=== PATIENT | female | born 1970 | race Caucasian/White ===

== ENCOUNTER 2016-10-01 22:58 | Emergency (ER) | payer BC ==
[~2016-10-01] VITALS: Ht 160 cm; Wt 68.0 kg
[2016-10-01 22:58] VITALS: BP 113/65
[2016-10-01] MEDS ORDERED: CLIN300C8 PO (23:32)
--- NOTE | 2016-10-01 23:32 | PHYS DOC ---
Adult General Chief Complaint Chief Complaint: DENTAL PROBLEM HPI HPI Patient is a 46 year old F who presents with left lower jaw dental abscess. Patient had extensive to work done with the implantation of dentures and developed an abscess to her left lower jaw. Patient called her dentist this week and was started on amoxicillin that was left over from a previous infection. Patient states the pain is getting worse and she has more swelling to her left lower jaw. Patient denies any difficulty swallowing. Patient denies any chest pain or shortness of breath. She denies any fevers. Patient has no other complaints. Review of Systems Review of Systems GEN: Denies fevers, chills, sweats HEENT: Left lower jaw dental abscess CV: Denies chest pain RESP: Denies shortness of air, cough GI: Denies n/v/d NEURO: Denies confusion, dizziness MSK: Denies weakness, joint pain/swelling Physical Exam Physical Exam GEN.: No apparent distress. Alert and oriented. HEENT: Head is normocephalic, atraumatic, swelling to left lower jaw with no significant area of fluctuance, newly dentures were placed in the lower and upper jaw NECK: Supple. LUNGS: CTAB. HEART: RRR, S1, S2 present. Peripheral pulses intact ABDOMEN: Soft, nontender. Positive bowel sounds. EXTREMITIES: Without any cyanosis. NEUROLOGIC: Normal speech, normal tone PSYCHIATRIC: Normal affect, normal mood. SKIN: No ulcerations EKG EKG [] Radiology/Procedures Radiology/Procedures [] Course & Med Decision Making Course & Med Decision Making Pertinent Labs and Imaging studies reviewed. (See chart for details) MDM: After reviewing the chart, CC/HPI/PMH, physical exam, I do not believe the patient has a significant infection of the mouth warranting further workup and/ or admission at this time. I do not believe the patient has Thom angina. I switched the patient and asked from amoxicillin to clindamycin and recommended short-term follow-up with tenderness in one to 2 days. Patient is stable for discharge. Additional verbal discharge instructions were provided to the patient and that if symptoms get worse or any new symptoms arise that are worrisome to the patient she is to return to the emergency room immediately [] Dragon Disclaimer Dragon Disclaimer This chart was dictated in whole or in part using Voice Recognition software in a busy, high-work load, and often noisy Emergency Department environment. It may contain unintended and wholly unrecognized errors or omissions. Departure Departure: Impression: Primary Impression: Dental abscess Disposition: 01 HOME, SELF-CARE Condition: STABLE Patient Instructions: Dental Abscess Additional Instructions: Please follow up with her dentist next 1-2 days Scripts Clindamycin Hcl (CLINDAMYCIN HCL) 300 Mg Capsule 1 CAP PO TID, #21 CAP Prov: ASHLEIGH MALLOY DO 10/01/16 ASHLEIGH MALLOY DO Oct 01, 2016 23:32
== END 2016-10-01 23:50 | disposition home or self-care (01) ==
LOC: ER 22:58
DX: K04.7 Periapical abscess without sinus (principal)
CPT/HCPCS: 99283

== ENCOUNTER 2020-04-18 04:11 | Emergency (ER) | payer BC, OTHER ==
[~2020-04-18] VITALS: Ht 167.6 cm; Wt 67.0 kg
[~2020-04-18 04:11] MED LIST: CLIN300C9 PO
--- NOTE | 2020-04-18 04:40 | PHYS DOC ---
Past History Past Medical History: Other (PAUL LYON MD) Past Surgical History: No Surgical History, Other (PAUL LYON MD) Alcohol Use: None (PAUL LYON MD) Adult General Chief Complaint Chief Complaint: ABDOMINAL PAIN HPI HPI Patient is a 49-year-old female, with a history of 3 C-sections who presents to the emergency department with a chief complaint of right lower quadrant pain associated with a couple episodes of nonbloody nonbilious emesis. States that all this started a couple of days ago and was initially intermittent but over the last 12 hours or so has been relatively constant, 7 out of 10, dull and achy in nature with a little radiation from the right lower quadrant to her right flank and noticed that her urine was really dark and kind of smell. States he has had urinary tract infections in the past. Denies any recent travel, illnesses, fevers, chest pain, shortness of breath, diarrhea or blood in the stool. (PALU LYON MD) Review of Systems Review of Systems Review of systems otherwise unremarkable except noted in HPI (PAUL LYON MD) Current Medications Current Medications Current Medications Medications (Trade) Dose Ordered Sig/Brody Start Time Stop Time Status Last Admin Dose Admin Info (Do NOT chart on this entry -- for MONITORING) 1 each PRN DAILY PRN 04/18/20 04:45 04/20/20 04:44 Iohexol (Omnipaque 300 Mg/ml) 75 ml 1X ONCE 04/18/20 05:00 04/18/20 05:01 Morphine Sulfate (Morphine 4mg Syringe) 4 mg 1X ONCE 04/18/20 05:00 04/18/20 05:01 Ondansetron HCl (Zofran) 4 mg 1X ONCE 04/18/20 05:00 04/18/20 05:01 (PAUL LYON MD) Allergies Allergies Allergies Coded Allergies Type Severity Reaction Last Updated Verified cephalexin Allergy Unknown 10/02/16 Yes clarithromycin Allergy Unknown 10/02/16 Yes prochlorperazine Allergy Unknown 10/02/16 Yes (PAUL LYON MD) Physical Exam Physical Exam Constitutional: Well developed, well nourished, no acute distress, non-toxic appearance. [] HENT: Normocephalic, atraumatic,oropharynx moist, no oral exudates, nose normal. [] Eyes: conjunctiva normal, no discharge. [] Cardiovascular:Heart rate regular rhythm, no murmur [] Lungs & Thorax: Bilateral breath sounds clear to auscultation [] Abdomen: Bowel sounds normal, soft, right lower quadrant tenderness, no masses, no pulsatile masses. [] Skin: Warm, dry, no erythema, no rash. [] Back: No tenderness, no CVA tenderness. [] Extremities: No tenderness, no cyanosis, no clubbing, ROM intact, no edema. [] Neurologic: Alert and oriented X 3, normal motor function, normal sensory function, no focal deficits noted. [] Psychologic: Affect normal, judgement normal, mood normal. [] (PAUL LYON MD) EKG EKG [] (PAUL LYON MD) Radiology/Procedures Radiology/Procedures [] (PAUL LYON MD) Radiology/Procedures CT abdomen/pelvis with contrast 04/18/2020 4:48 AM INDICATION: Right lower quadrant abdominal pain, nausea and vomiting COMPARISON: None available TECHNIQUE: Multiple axial CT images of the abdomen and pelvis were obtained after the intravenous administration of nonionic contrast. Coronal and sagittal reformats are provided. FINDINGS: Lung bases are clear. Heart size within normal limits. Liver, spleen, bilateral adrenal glands, pancreas and gallbladder are normal in appearance. Abdominal aorta is normal in course and caliber. Trace pelvic free fluid. No free intraperitoneal air. Small and large bowel are normal in caliber. There is no evidence for bowel obstruction. There are no pericolonic inflammatory changes. A normal, nondilated appendix is visualized without adjacent inflammatory changes. There is urothelial wall thickening involving the right renal pelvis and ureter with perinephric and periureteral fat stranding on the right. There is heterogeneous enhancement of the right renal parenchyma. Consideration may be given for pyelonephritis. No suspicious renal mass. No significant hydr onephrosis. Mild bladder wall thickening is noted. Uterus and adnexa are normal by CT. No suspicious osseous normality is identified. IMPRESSION: Findings are suspicious for right-sided pyelonephritis with associated pyelitis and cystitis. No evidence for obstructive uropathy. (GAURAV REINOSO MD) Heart Score Risk Factors: Risk Factors: DM, Current or recent (<one month) smoker, HTN, HLP, family history of CAD, obesity. Risk Scores: Risk Factors: DM, Current or recent (<one month) smoker, HTN, HLP, family history of CAD, obesity. (PAUL LYON MD) Course & Med Decision Making Course & Med Decision Making Patient is a 49-year-old female presents with right lower quadrant pain associate with nausea and vomiting for couple days Vital signs notable for fever and tachycardia. Physical exam noted above. Patient placed on monitor with IV access established. Given morphine for pain and Zofran for nausea. CT of the abdomen pelvis, and labs pending. Transferred care to day team. [] (PAUL LYON MD) Course & Med Decision Making Work-up consistent with pyelonephritis. At shift change patient is currently getting Cipro. We will continue Cipro to cover for pyelonephritis as outpatient treatment (GAURAV REINOSO MD) Dragon Disclaimer Dragon Disclaimer This electronic medical record was generated, in whole or in part, using a voice recognition dictation system. (PAUL LYON MD) Departure Departure: Impression: Primary Impression: Right lower quadrant pain Additional Impressions: Nausea & vomiting Pyelonephritis Disposition: 01 [place] HOME SELF CARE/HOMELESS Condition: STABLE Referrals: PADDY JUAN (PCP) Patient Instructions: Pyelonephritis, Adult Scripts Ciprofloxacin Hcl (CIPRO) 500 Mg Tablet 1 TAB PO BID for antibiotic for 7 Days, #14 TAB 0 Refills Prov: GAURAV REINOSO MD 04/18/20 Ondansetron Hcl (ZOFRAN) 4 Mg Tablet 1 TAB PO PRN Q6HRS PRN for NAUSEA for 3 Days, #6 TAB Prov: GAURAV REINOSO MD 04/18/20 Problem Qualifiers PAUL LYON MD Apr 18, 2020 04:40 GAURAV REINOSO MD Apr 18, 2020 06:31
[2020-04-18] MEDS ORDERED: CONTRAST GIVEN. MC PRN (04:45)
[2020-04-18] MEDS ORDERED: MORPHINE SULFATE 4 MG/ML DISP.SYRIN. IV ONE (05:00)
[2020-04-18] MEDS ORDERED: ONDANSETRON PF 4 MG/2 ML VIAL. IVP ONE (05:00)
[2020-04-18] MEDS ORDERED: IOHEXOL 300 MG/ML 75 ML VIAL. IV ONE (05:00)
[2020-04-18 05:20] LABS: BASO % 0 % (0-3); EOS % 0 % (0-3); HEMATOCRIT 34.9 % (36.0-47.0); HEMOGLOBIN 11.2 g/dL (12.0-15.5); LYMPH # 0.3 x10^3/uL (1.0-4.8); LYMPH % 2 % (24-48); MEAN CORPUSCULAR HEMOGLOBIN 28 pg (25-35); MEAN CORPUSCULAR HGB CONC 32 g/dL (31-37); MEAN CORPUSCULAR VOLUME 86 fL (79-100); MONO # 0.7 x10^3/uL (0.0-1.1); MONO % 5 % (0-9); NEUT # 13.7 x10^3uL (1.8-7.7); NEUT % 93 % (31-73); PLATELET COUNT 223 x10^3/uL (140-400); RED BLOOD COUNT 4.07 x10^6/uL (3.50-5.40); WHITE BLOOD COUNT 14.7 x10^3/uL (4.0-11.0)
[2020-04-18 05:29] LABS: BILIRUBIN,URINE NEG (NEG); CLARITY,URINE CLOUDY; COLOR,URINE AMBER; GLUCOSE,URINE NEG (NEG); NITRITE,URINE POS (NEG); UROBILINOGEN,URINE 0.2 mg/dL (0.2 mg/dL)
[2020-04-18 05:30] LABS: BACTERIA,URINE FEW /HPF (0-FEW); SQUAMOUS EPITHELIAL CELL,UR MANY /LPF; WBC,URINE TNTC /HPF (0-4)
[2020-04-18 05:57] LABS: ALBUMIN/GLOBULIN RATIO 0.7 (1.0-1.7); CALCIUM 8.2 mg/dL (8.5-10.1); CREATININE 1.4 mg/dL (0.6-1.0); GFR 40.3; POTASSIUM 3.6 mmol/L (3.5-5.1); TOTAL BILIRUBIN 0.5 mg/dL (0.2-1.0); TOTAL PROTEIN 7.4 g/dL (6.4-8.2)
--- NOTE | 2020-04-18 05:57 | RAD ---
PQRS Compliance Statement: One or more of the following individualized dose reduction techniques were utilized for this examinat ion: 1. Automated exposure control 2. Adjustment of the mA and/or kV according to patient size 3. Use of iterative reconstruction technique CT abdomen/pelvis with contrast 04/18/2020 4:48 AM INDICATION: Right lower quadrant abdominal pain, nausea and vomiting COMPARISON: None available TECHNIQUE: Multiple axial CT images of the abdomen and pelvis were obtained after the intravenous adm inistration of nonionic contrast. Coronal and sagittal reformats are provided. FINDINGS: Lung bases are clear. Heart size within normal limits. Liver, spleen, bilateral adrenal glands, pancr eas and gallbladder are normal in appearance. Abdominal aorta is normal in course and caliber. Trace pelvic free fluid. No free intraperitoneal air. Small and large bowel are normal in caliber. There is no evidence for bowel obstruction. There are no pericolonic inflammatory changes. A normal, nondilat ed appendix is visualized without adjacent inflammatory changes. There is urothelial wall thickening involving the right renal pelvis and ureter with perinephric and periureteral fat stranding on the right. There is heterogeneous enhancement of the right renal parenc hyma. Consideration may be given for pyelonephritis. No suspicious renal mass. No significant hydrone phrosis. Mild bladder wall thickening is noted. Uterus and adnexa are normal by CT. No suspicious oss eous normality is identified. IMPRESSION: Findings are suspicious for right-sided pyelonephritis with associated pyelitis and cystitis. No evid ence for obstructive uropathy. Electronically signed by: Mary Arshad MD (04/18/2020 5:54 AM) [facility]
[2020-04-18] MEDS ORDERED: CIPROFLOXACIN 400MG PREMIX 200 ML IV ONE (06:15)
[2020-04-18] MEDS ORDERED: ACETAMINOPHEN 500 MG TABLET PO ONE (06:30)
[2020-04-18] MEDS ORDERED: CIPR500T94 PO (06:31)
[2020-04-18] MEDS ORDERED: ONDA4TAB7 PO (06:31)
[2020-04-18 06:45] VITALS: BP 116/72
== END 2020-04-18 07:18 | disposition home or self-care (01) ==
LOC: ER 04:11
DX: N12 Tubulo-interstitial nephritis, not specified as acute or chronic (principal); R10.31 Right lower quadrant pain; R11.2 Nausea with vomiting, unspecified; Z88.1 Allergy status to other antibiotic agents; Z88.8 Allergy status to other drugs, medicaments and biological substances
CPT/HCPCS: 36415; 74177; 80053; 81001; 81025; 83690; 85025; 87086; 96365; 96375; 99285; J0744; J2270; J2405; Q9967

== ENCOUNTER 2021-04-16 18:53 | Emergency (ER) | payer OTHER ==
[~2021-04-16] VITALS: Ht 165.1 cm; Wt 56.0 kg
[~2021-04-16 18:53] MED LIST changes: +CIPR500T94 PO; +CLIN-95 PO; -CLIN300C9 PO; +ONDA4TAB7 PO
[2021-04-16 19:10] VITALS: BP 145/107
[2021-04-16] MEDS ORDERED: LIDOCAINE 2% 20 ML VIAL. ONE (19:25)
[2021-04-16] MEDS ORDERED: NEOMY/BACITR/POLYMYXIN OINT PACKET. TP ONE (19:30)
[2021-04-16] MEDS ORDERED: LIDOCAINE 2%/EPI 1:100,000 20 ML VIAL. IJ ONE (19:30)
--- NOTE | 2021-04-16 19:55 | PHYS DOC ---
Past History Past Medical History: DVT, Hypertension, Other Additional Past Medical Histor: Lupus, clotting disorder Past Surgical History: Additional Past Surgical Histo: c-sectionx3 Smoking: Non-smoker Alcohol Use: None Drug Use: None General Adult EDM: Chief Complaint: LACERATION/AVULSION HPI: HPI: Patient is a 50 year old female who presents with chief complaint of laceration to left hand just prior to arrival. Patient reports she was unloading the steam press tender this evening when she reached in and accidentally cut her hand on a knife. Patient reports pain but denies numbness or tingling. Bleeding was controlled on arrival. Reports tetanus booster less than 5 years ago. Review of Systems: Review of Systems: Constitutional: Denies fever or chills Musculoskeletal: Reports pain to interweb on left hand between first and second digit. Reports full range of motion of fingers. Integument: Denies rash; reports laceration Neurologic: Denies focal weakness or sensory changes Complete systems were reviewed and found to be within normal limits, except as documented in this note. Current Medications: Current Meds: Current Medications Medications (Trade) Dose Ordered Sig/Brody Start Time Stop Time Status Last Admin Dose Admin Lidocaine HCl (Lidocaine 2%) 20 ml STK-MED ONCE 04/16/21 19:25 04/16/21 19:25 DC Lidocaine/ Epinephrine (Xylocaine 2%-Epi 1:100,000) 20 ml 1X ONCE 04/16/21 19:30 04/16/21 19:34 DC Neomycin/ Polymyxin/ Bacitracin (Triple Antibiotic Ointment) 1 pkt 1X ONCE 04/16/21 19:30 04/16/21 19:34 DC Allergies: Allergies: Allergies Coded Allergies Type Severity Reaction Last Updated Verified cephalexin Allergy Unknown 10/02/16 Yes clarithromycin Allergy Unknown 10/02/16 Yes prochlorperazine Allergy Unknown 10/02/16 Yes Physical Exam: PE: Constitutional: Well developed, well nourished, no acute distress, non-toxic appearance HENT: Normocephalic, atraumatic Eyes: Conjunctiva normal, no discharge Neck: Normal range of motion, supple Lungs & Thorax: No respiratory distress, equal chest rise and fall Cardiovascular: Left radial pulse +2, cap refill of left hand less than 2 seconds Skin: Warm, dry, no erythema, laceration as below to left hand Extremities: Superficial laceration between thumb and first finger approximately 4 cm. Bleeding well controlled. Sensation and capillary refill intact distally in both thumb and first finger. Neurologic: Alert and oriented X 3, normal motor function, normal sensory functi on, no focal deficits noted Psychologic: Affect normal, judgment normal Current Patient Data: Vital Signs: Vital Signs Date Time Temp Pulse Resp B/P (MAP) Pulse Ox O2 Delivery O2 Flow Rate FiO2 04/16/21 19:10 98.8 110 18 145/107 (120) 98 Room Air EKG: EKG: [] Radiology/Procedures: Radiology/Procedures: [] Heart Score: C/O Chest Pain: N/A Course & Med Decision Making: Course & Med Decision Making Patient presented with a laceration to the left hand between the thumb and index finger, bleeding was well controlled on arrival. Pain controlled with 3mL of 2% lidocaine with epinephrine, wound was irrigated with normal saline. Wound edges approximated and 5 sutures placed. Patient instructed to return to ED or prese nt to primary care for suture removal. Patient stable for discharge with outpatient follow-up with PCP. Discussed findings and plan with patient, who acknowledges understanding and agreement. [employer] Disclaimer: [employer] Disclaimer: This electronic medical record was generated, in whole or in part, using a voice recognition dictation system. Laceration/Wound Repair Laceration/Wound Repair : Wound Location: upper extremity (Left hand interweb between first and second digit) Wound's Depth, Shape: superficial, linear Wound Length (cm): 4 Wound Explored: no foreign body removed Irrigated w/ Saline (ccs): 200 Anesthesia: Lidocaine w/ Epi (2%) Volume Anesthetic (ccs): 3 Wound Debrided: minimal Wound Repaired With: sutures Suture Size/Type: 4:0, nylon Number of Sutures: 5 Sterile Dressing Applied?: Yes Progress Verbal consent obtained. Time out performed. Hand hygiene utilized. Wound cleaned with ChloraPrep. Anesthesia obtained via a 30-gauge hypodermic needle with (3) mL's of lidocaine 2% with epinephrine. Copious irrigation performed. Wound well approximated with 4-0 nylon simple interrupted sutures x5. Patient tolerated procedure well and without difficulty. Empiric antibiotic ointment applied prior to sterile dressing. Departure Departure: Impression: Primary Impression: Hand laceration Qualified Codes: S61.412A - Laceration without foreign body of left hand, initial encounter Disposition: HOME / SELF CARE / HOMELESS Condition: STABLE Referrals: PADDY JUAN (PCP) Patient Instructions: Laceration Care, Adult, [id number] Additional Instructions: Do not soak your wound. You may shower. Clean wound daily with soap and water. Change dressing 2 times daily. Use over the counter antibiotic ointment with each dressing change. Sutures need to be removed in 7-10 days. Present to your family doctor or local urgent care for removal. You may also present to the ED but it will be an additional visit/charge. After suture removal you may use Vitamin E ointment to soften the wound and prevent scarring. Use [id number] ibuprofen and or Tylenol for pain or discomfort. CLARE JOVEL DO Apr 16, 2021 19:55
== END 2021-04-16 20:09 | disposition home or self-care (01) ==
LOC: ER 18:53
DX: S61.412A Laceration without foreign body of left hand, initial encounter (principal); I10 Essential (primary) hypertension; Z86.718 Personal history of other venous thrombosis and embolism; Z88.1 Allergy status to other antibiotic agents; Z88.8 Allergy status to other drugs, medicaments and biological substances; W26.0XXA Contact with knife, initial encounter; Y93.89 Activity, other specified; Y92.89 Other specified places as the place of occurrence of the external cause; Y99.8 Other external cause status
CPT/HCPCS: 12002; 99282